=== PATIENT | male | born 1970 | race Two or more races ===

== ENCOUNTER 2019-09-06 16:54 | Emergency (ER) | payer OTHER ==
[~2019-09-06] VITALS: Ht 172.7 cm; Wt 86.2 kg
--- NOTE | 2019-09-06 17:00 | NUR ---
patient came in to the er c/o left ankle pain s/p slipped and fall from 6 foot ladder, no ko, on room air, breathing evenly and unlabored. kept comfortable, will continue to monitor accordingly.
[2019-09-06 19:04] VITALS: BP 140/82
--- NOTE | 2019-09-06 19:04 | NUR ---
Patient discharged to home in stable condition. Written and verbal after care instructions given. Patient verbalizes understanding of instruction.
== END 2019-09-06 19:04 | disposition home or self-care (01) ==
LOC: ER 17:02
DX: M25.571 Pain in right ankle and joints of right foot (principal)
CPT/HCPCS: 73610-TC